=== PATIENT | male | born 1980 | race Caucasian/White ===

== ENCOUNTER 2024-06-17 14:47 | Emergency (ER) | payer SELFPAY ==
[2024-06-17 15:08] VITALS: BP 151/89; PULSE 103; RESP 20; TEMP 36.4; O2SAT 98; BMI 30.8
--- NOTE | 2024-06-17 15:19 | ED_ITS ---
Discharge Plan Disposition Patient Disposition: Home, Self-Care Condition: Good Prescriptions Prescriptions: New clindamycin HCl 300 mg capsule 300 mg PO Q6H Qty: 40 0RF mupirocin 2 % ointment 1 applic topical TID 10 Days Qty: 22 0RF Rx Instructions: apply directed to wound area as directed Referrals Follow up/Referrals: Provider,Referral, [Primary Care Provider] - See instructions Activity Restrictions/Add. Instructions Additional Instructions/Restrictions: *Start antibiotic(s) immediately and be sure to take as ordered for the FULL length of time although you may be feeling better or start to see improvement in the next 24-48 hours *Monitor closely. Outlined redness so that you can monitor easier. Follow up immediately for new or worsening symptoms including but not limited to redness, swelling, streaking from site fever or chills. *Warm compress 15 minutes 3-4 times day *Never squeeze or pop these on your own. Seek immediate medical attention next time this occurs *Monitor Temp. Tylenol every 4 hours as needed and ibuprofen every 6 hours as needed (as long as your primary care doctor has told you that it is ok to take both. For fever, aches, pain. ER if no less that 101 despite Tylenol and ibuprofen ?Follow up with your family doctor/primary care physician in the next 48-72 hours if no improvement Clinical Impressions Clinical Impression: Cellulitis Instructions Patient Instructions: Cellulitis, Clindamycin, Mupirocin, DI for Cellulitis -- Adult Print Language Print Language: Citizen Of [place] Discharge ED Provider: Priscilla Kilpatrick [facility] HPI General Stated complaint: possible spider bite on Left leg Mode of Arrival: Ambulatory Source of Information: Patient Limitations: No Limitations Time Seen by Provider: 06/17/24 15:20 Description of Symptoms (Recalled from Triage Doc. by RN): left leg abcess HEENT Symptoms (Recalled from RN notes): No Resp Symptoms (Recalled from RN notes): No Skin Symptoms (Recalled from RN notes): Yes MS Symptoms (Recalled from RN notes): No Functional Status (Recalled from RN notes): na History of Present Illness Provider Complaint: Patient states he thinks he was bitten by spider on his left calf area States had raised sore area on his calf and he busted it and then the redness spread and area started draining thick yellowish stuff States today the area is more sore and he was worried that the infection may be spreading so he came in Related Data Previous Rx's ?Medication ?Instructions ?Recorded clindamycin HCl 300 mg capsule 300 mg PO Q6H #40 caps 06/17/24 mupirocin 2 % topical ointment 1 applic topical TID 10 days #22 06/17/24 grams Allergies Allergy/AdvReac Type Severity Reaction Status Date / Time amoxicillin Allergy Unknown Rash Verified 06/17/24 15:23 Penicillins Allergy Unknown Rash Verified 06/17/24 15:23 Worker's Comp Is this a Worker's Comp case?: No Is this an [facility] Worker's Comp?: No Is this a [place] Worker's Comp?: No [facility] Disclaimer: The information contained in this section may have been updated after the patient was seen, as this information can be updated by other users. Social History Smoking Status: Unknown if ever smoked alcohol intake: never current occupational status: employed Travel in the last 8 weeks: None ROS Obtained: Yes All systems reviewed & no additional complaints except as documented and Yes Systems reviewed as appropriate & no additional complaints except as documented Constitutional Constitutional: Reports system reviewed and no additional complaints, except as documented, Reports as per HPI, Denies body ache, Denies chills and Denies fever(s) ENT Ears, Nose, Mouth, and Throat: Reports system reviewed and no additional complaints, except as documented and Reports as per HPI Cardiovascular Cardiovascular: Reports system reviewed and no additional complaints, except as documented and Reports as per HPI Respiratory Respiratory: Reports system reviewed and no additional complaints, except as documented and Reports as per HPI Gastrointestinal Gastrointestingal: Reports system reviewed and no additional complaints, except as documented and as per HPI Integumentary/Breasts Skin/Breast: Reports system reviewed and no additional complaints, except as documented and Reports as per HPI Comments: spider bite on left calf area draining and surrounding redness Physical Exam General General appearance: alert and in no apparent distress ENT ENT exam: Present mucous membranes moist Respiratory Respiratory exam: Present normal lung sounds bilaterally; Absent respiratory distress or wheezes Cardiovascular Cardiovascular exam: Present regular rate, normal rhythm and normal heart sounds Neurological Exam Neurological exam: Present alert, oriented X3 and normal gait Expanded Skin Exam Type of lesion: Present abscess (with surrounding cellulitis, area open and draining culture obtained and sent to lab) Medical Decision Making Gold Inquiry Pt receiving controlled substance: No Gold was queried for this patient: No Vital Signs: 06/17/24 15:08 Temperature 97.6 F Temperature Source Oral Pulse Rate [Left] 103 H Respiratory Rate 20 Blood Pressure [Left Arm] 151/89 H Blood Pressure Mean [Left Arm] 109 02 Sat by Pulse Oximetry 98 Medical Decision Narrative: Patient has area on back of left calf are that is open and draining with surrounding redness, denies fever, denies nausea, denies vomiting culture obtained and sent to lab discussed transfer to the ED and patient declined Will start on Clindamycin and mupirocin and patient given strict return precautions to the ED
[2024-06-17 15:39] VITALS: BP 151/89; PULSE 100; RESP 18; TEMP 36.4; O2SAT 96
== END 2024-06-17 15:42 | disposition home or self-care (01) ==
PROVIDERS: Emergency Provider Nurse Practitioner
DX: L03.116 Cellulitis of left lower limb (principal); B95.7 Other staphylococcus as the cause of diseases classified elsewhere; M79.662 Pain in left lower leg
CPT/HCPCS: 87070; 87077; 87186; 87205; 99204; 99212; G0463

== ENCOUNTER 2024-10-17 13:52 | Emergency (ER) | payer SELFPAY ==
[2024-10-17 13:59] VITALS: BP 149/78; PULSE 91; RESP 16; TEMP 36.7; O2SAT 100; BMI 27.3
--- NOTE | 2024-10-17 14:21 | ED_ITS ---
<Statement entered by Jade Gibson MD - 10/17/24 15:29> I was consulted by the ELIZABETH, and we discussed the complexity of problems being addressed. I approved the treatment and management plan for this patient's care in the emergency department, thus performing a substantive portion of the medical decision making. Jade Gibson MD Discharge Plan Disposition Patient Disposition: Home, Self-Care Condition: Good Prescriptions Prescriptions: New methocarbamol 750 mg tablet 750 mg PO Q6H PRN (Reason: muscle spasm) Qty: 20 0RF lidocaine 5 % adhesive patch,medicated 1 patch topical DAILY Qty: 30 0RF Rx Instructions: leave on most painful area for up to 12 hrs No Action clindamycin HCl 300 mg capsule 300 mg PO Q6H Qty: 40 0RF mupirocin 2 % ointment 1 applic topical TID 10 Days Qty: 22 0RF Rx Instructions: apply directed to wound area as directed Referrals Follow up/Referrals: Nikos Lockhart, PT [Physical Therapist] - See instructions (Torticollis) Provider,Referral, [Primary Care Provider] - See instructions Activity Restrictions/Add. Instructions Additional Instructions/Restrictions: As we discussed please utilize 1000 mg of Tylenol every 6 hours for 2 days Naprosyn twice a day for 2 days along with the Robaxin and Lidoderm patches. If you have no improvement I have referred you to physical therapy which you can avail yourself of. For any worsening signs or symptoms follow-up with your PCP or to the ER as needed Clinical Impressions Clinical Impression: Acute torticollis Stand Alone Forms Stand Alone Forms: Work/School Release Instructions Patient Instructions: DI for Torticollis Print Language Print Language: Taj[place] Discharge ED Provider: Jade Gibson General Adult HPI General Chief complaint: PAIN Stated complaint: neck/shoulder pain x2 weeks Time Seen by Provider: 10/17/24 14:19 History of Present Illness HPI narrative: Patient presents for left-sided neck pain. Patient reports nontraumatic left sided posterior neck pain for the last 2 weeks. He denies any trauma. He states it initially began after waking up and sleeping wrong . He has tried [id number] treatments with no success. 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 He denies any numbness tingling denies any radiating pain he has no focal neurological complaints. Related Data Previous Rx's ?Medication ?Instructions ?Recorded clindamycin HCl 300 mg capsule 300 mg PO Q6H #40 caps 06/17/24 mupirocin 2 % topical ointment 1 applic topical TID 10 days #22 06/17/24 grams lidocaine 5 % topical patch 1 patch topical DAILY #30 ea 10/17/24 methocarbamol 750 mg tablet 750 mg PO Q6H PRN muscle spasm #20 10/17/24 tabs Allergies Allergy/AdvReac Type Severity Reaction Status Date / Time amoxicillin Allergy Unknown Rash Verified 06/17/24 15:23 Penicillins Allergy Unknown Rash Verified 06/17/24 15:23 PFSH [facility] Disclaimer: The information contained in this section may have been updated after the patient was seen, as this information can be updated by other users. Social History (Updated 06/17/24 @ 15:34 by Priscilla Kilpatrick APRN) Smoking Status: Current every day smoker alcohol intake: never current occupational status: employed Travel in the last 8 weeks: None Have you lived/traveled outside [place] in past 30 days?: No Contact w/someone who lives/traveled outside [place] past 30 days?: No Exposure to someone with infectious disease in past 14 days?: No Do you have a fever (greater than 100.4 F or 38 C)?: No Have you tested positive for COVID-19: No Exposed to someone with COVID-19 in past 14 days?: No Do you have a sore throat?: No Do you have a cough?: No Do you have any weakness?: No Do you have any diarrhea?: No Are you experiencing any unusual bleeding?: No Do you have any muscle aches/pain?: Yes Do you have any abdominal pain?: No Are you experiencing loss of taste or smell?: No ROS Obtained: Yes Systems reviewed as appropriate & no additional complaints except as documented Physical Exam General General appearance: alert and in no apparent distress Respiratory Respiratory exam: Present normal lung sounds bilaterally Cardiovascular Cardiovascular exam: Present regular rate Neurological Exam Neurological exam: Present alert and oriented X3 Medical Decision Making Medical Records Screening: Per USPSTF and CDC recommendations, given the prevalence of disease in our region, it is our hospital?s policy to screen for HIV and viral Hepatitis for all patients aged 18 and over and those with ongoing risk factors. Gold Inquiry Pt receiving controlled substance: No Vital Signs: 10/17/24 13:59 10/17/24 15:06 Temperature 98.1 F 98.1 F Temperature Source Oral Pulse Rate 85 Pulse Rate [Left] 91 H Respiratory Rate 16 16 Blood Pressure 136/77 Blood Pressure [Right Arm] 149/78 H Blood Pressure Mean [Right Arm] 101 Blood Pressure Source [Right Arm] Automatic Cuff Blood Pressure Position [Right Arm] Sitting 02 Sat by Pulse Oximetry 100 Orders (Tests/Meds): ED MEDICATIONS Discontinued Medications Generic Name Dose Route Start Last Admin Trade Name Jerome PRN Reason Stop Dose Admin Acetaminophen 1,000 mg 10/17/24 14:33 10/17/24 14:39 Acetaminophen 500mg Tab PO 10/17/24 14:34 1,000 mg ONCE ONE Administration Lidocaine 1 each 10/17/24 14:33 10/17/24 14:39 Lidocaine 5% Transdermal Patch TP 10/17/24 14:34 1 each ONCE ONE Administration Methocarbamol 500 mg 10/17/24 14:33 10/17/24 14:39 Methocarbamol 500mg Tablet PO 10/17/24 14:34 500 mg ONCE ONE Administration Naproxen 500 mg 10/17/24 14:36 10/17/24 14:39 Naproxen 500mg Tablet PO 10/17/24 14:37 500 mg ONCE ONE Administration Medical Decision Narrative: In summary patient is a 43-year-old male who presents to the emergency department for evaluation of neck pain. Patient is hemodynamically stable upon arrival, afebrile. Physical exam is remarkable for a taut cervical portion of the trapezius muscle that is very tender to palpation. I do not feel any knots or lymphadenopathy. He has no midline cervical tenderness. The pain does not radiate. He has no reduced range of motion in his upper extremity on the left. He is neurovascular intact distally in the upper extremity on the left. He has no nuchal rigidity.. Differential diagnosis includes muscle spasm versus muscle tear etc. Initial workup was considered however patient has no red flags including neurologic signs cellulitis abscess or acute traumatic cause thus it is deferred. Initial interventions include Tylenol Robaxin Lidoderm naproxen. I had interactive discussion with the patient regarding management and treatment options. Via patient directed decision making and discharge patient is comfortable going home with the prescriptions sent to his pharmacy and referral to PT OT for no improvement. Critical Care Critical Care Time Critical Care Time: No
[2024-10-17] MEDS: ACETAMINOPHEN 500MG TAB 1000 MG PO (14:39)
[2024-10-17] MEDS: LIDOCAINE 5% TRANSDERMAL PATCH 1 EACH TP (14:39)
[2024-10-17] MEDS: METHOCARBAMOL 500MG TABLET 500 MG PO (14:39)
[2024-10-17] MEDS: NAPROXEN 500MG TABLET 500 MG PO (14:39)
[2024-10-17 15:06] VITALS: BP 136/77; PULSE 85; RESP 16; TEMP 36.7
== END 2024-10-17 15:09 | disposition home or self-care (01) ==
PROVIDERS: Emergency Provider Student in an Organized Health Care Education/Training Program
DX: M43.6 Torticollis (principal); M54.2 Cervicalgia
CPT/HCPCS: 99283